=== PATIENT | female | born 1950 | race American Indian/Alaskan Native ===

== ENCOUNTER 2018-08-18 12:43 | Inpatient (IN) | payer MEDICARE, OTHER ==
--- NOTE | 2018-08-18 13:21 | History and Physical Report ---
History of Present Illness Date of examination: 08/18/18 Date of admission: Aug 18 2018 Chief complaint: Diziness Generalized weakness Shortness ofbreath withexertion Black stool History of present illness: 67 year old female presented in the office today , here with complaint of feeling dizzy and lightheaded ongoing for the past three days ,diziness is when standing upwards worse when up and about ,no chest pain but feels short of breath with physical activities . Patient has not been monitoring her blood pressure denied any associated vertigo no nausea or vomiting , no fever and no chills but no fever but feels sweaty. Patient also complaining of stiffness in the neck and moving and turning the neck makes dizziness more pronounced . Patient also complained that her stool has been black over the past week but denied any abdominal pain , no diarhea nausea orvomitingand has not noticed any bright red blood in her stool .Patient denied any previous history of ulcer or gastroesophageal reflux and has not observed any significant change in her w eight . Medications and Allergies Allergies Allergy/AdvReac Type Severity Reaction Status Date / Time No Known Allergies Allergy Unverified 02/19/14 09:45 Active Meds: Active Medications Sodium Chloride (Nacl 0.9% 1000 Ml) 1,000 mls @ 125 mls/hr IV DIRECT MARLA Pantoprazole Sodium (Protonix) 40 mg IV QDAY MARLA Review of Systems Constitutional: anorexia, fatigue, weakness Cardiovascular: palpitations, lightheadedness, shortness of breath, dyspnea on exertion, high blood pressure Respiratory: shortness of breath, dyspnea on exertion Neurological: headaches Exam - Constitutional General appearance: Present: no acute distress - EENT Eyes: Present: PERRL - Neck Neck: Present: supple, normal ROM - Respiratory Respiratory effort: normal Respiratory: bilateral: CTA - Cardiovascular Heart rate: 1,100 Rhythm: other (tachycardia) Heart Sounds: Present: S1 & S2 - Extremities Extremities: no ischemia, pulses intact, pulses symmetrical Peripheral Pulses: within normal limits - Abdominal General gastrointestinal: Present: soft, non-tender, non-distended, normal bowel sounds Female genitourinary: Present: deferred - Rectal Rectal Exam: normal exam-external/orifice, normal rectal tone, stool dark, other (strongly guaic positive stool ) - Integumentary Integumentary: Present: warm, dry, pale - Psychiatric Psychiatric: depressed - Neurologic Neurologic: CNII-XII intact, moves all extremities Assessment and Plan - Patient Problems (1) Gastrointestinal bleeding Status: Acute Plan to address problem: Acute ongoing GI bleedingwith upper GI bleeding . Will admit , keep on clear liquid tilll evaluated by GI then keep NPO IV NS IV Protonix (2) Iron deficiency anemia due to chronic blood loss Status: Acute Plan to address problem: GI bleeding secondary to Upper GI GI consult initiated . Check coagualtion status
[2018-08-18 14:38] LABS: Basophils # (Auto) 0.1 K/mm3 (0.0-0.1); Basophils % (Auto) 0.6 % (0.0-1.8); Eosinophils % (Auto) 0.3 % (0.0-4.3); Hematocrit 20.7 % (30.3-42.9); Hemoglobin 6.6 gm/dl (10.1-14.3); Lymphocytes # (Auto) 3.3 K/mm3 (1.2-5.4); Lymphocytes % (Auto) 33.2 % (13.4-35.0); Mean Corpuscular HGB Conc 32 % (30-34); Mean Corpuscular Volume 73 fl (79-97); Monocytes # (Auto) 0.5 K/mm3 (0.0-0.8); Monocytes % (Auto) 5.1 % (0.0-7.3); Platelet Count 243 K/mm3 (140-440); Red Blood Count 2.85 M/mm3 (3.65-5.03); Red Cell Distribution Width 14.5 % (13.2-15.2)
[2018-08-18 14:41] LABS: INR 0.95 (0.87-1.13)
[2018-08-18] MEDS: NACL 0.9% 1000 ML 1,000 ML IV SCH (14:52)
[2018-08-18] MEDS: PROTONIX IV SCH (14:52)
[2018-08-18 14:58] LABS: Alanine Aminotransferase 27 units/L (7-56); Albumin 3.5 g/dL (3.9-5); BUN/Creatinine Ratio 27; Blood Urea Nitrogen 24 mg/dL (7-17); Calcium 8.9 mg/dL (8.4-10.2); Hemolysis Index 0
[2018-08-18] MEDS ORDERED: NACL 0.9% 500 ML 500 ML IV NR (19:06)
[2018-08-19 08:26] LABS: Basophils % (Auto) 0.4 % (0.0-1.8); Eosinophils # (Auto) 0.1 K/mm3 (0.0-0.4); Hemoglobin 9.7 gm/dl (10.1-14.3); Lymphocytes # (Auto) 3.1 K/mm3 (1.2-5.4); Lymphocytes % (Auto) 35.5 % (13.4-35.0); Mean Corpuscular HGB Conc 33 % (30-34); Mean Corpuscular Volume 79 fl (79-97); Monocytes # (Auto) 0.6 K/mm3 (0.0-0.8); Monocytes % (Auto) 6.5 % (0.0-7.3); Platelet Count 233 K/mm3 (140-440); Red Cell Distribution Width 18.8 % (13.2-15.2)
[2018-08-19] MEDS: PROTONIX IV SCH (09:12)
--- NOTE | 2018-08-19 10:13 | Gastroenterology Consultation ---
History of Present Illness - Reason for Consult Consult date: 08/19/18 Melena, anemia Requesting physician: RHODA BANERJEE - History of Present Illness Ms Huffman is a 67 yo aaf who presents with recent episode of black stools. Pt went to urgent care for various symptoms including weakness/muscle aches and was found to have abnormal H/H and instructed to come to the hospital. She had an episode of black stools 2-3 days prior to admission, and another episode this m orning (2-3 total episodes in the past week). She takes aleve for muscle aches. Denies abdominal pain, hematemesis, or brbpr. reports having a colonoscopy last year without significant findings per her understanding. pt received blood transfusions following admission with appropriate rise in H/H; no known h/o liver disease. Past History Past Medical History: hypertension, stroke Past Surgical History: hysterectomy Social history: no significant social history Family history: no significant family history Medications and Allergies Allergies Allergy/AdvReac Type Severity Reaction Status Date / Time No Known Allergies Allergy Unverified 02/19/14 09:45 Home Medications Medication Instructions Recorded Confirmed Last Taken Type Amlodipine Besylate 10 mg PO DAILY 08/18/18 08/18/18 08/17/18 09:00 History Atorvastatin Calcium 80 mg PO DAILY 08/18/18 08/18/18 08/17/18 09:00 History Cyclobenzaprine HCl 5 mg PO DAILY 08/18/18 08/18/18 08/17/18 09:00 History Hydrochlorothiazide 25 mg PO DAILY 08/18/18 08/18/18 08/17/18 09:00 History Lisinopril 20 mg PO DAILY 08/18/18 08/18/18 08/17/18 09:00 History Tramadol HCl 50 mg PO Q6HR PRN 08/18/18 08/18/[address] 75 mg PO DAILY 08/18/18 08/18/18 08/17/18 09:00 History Active Meds: Active Medications Sodium Chloride (Nacl 0.9% 1000 Ml) 1,000 mls @ 125 mls/hr IV DIRECT MARLA Last Admin: 08/18/18 14:52 Dose: 125 mls/hr Documented by: Pantoprazole Sodium (Protonix) 40 mg IV QDAY MARLA Last Admin: 08/19/18 09:12 Dose: 40 mg Documented by: Reviewed/updated patient's home and current medications Review of Systems - Review of Systems All systems: negative (muscle aches, dizziness, rest per HPI) Exam - Constitutional Vital Signs: Temp Pulse Resp BP Pulse Ox 98.9 F 79 16 139/53 99 08/19/18 07:41 08/19/18 07:41 08/19/18 07:41 08/19/18 07:41 08/19/18 07:41 General appearance: no acute distress - EENT Eyes: PERRL ENT: hearing intact - Neck Neck: supple - Respiratory Respiratory effort: normal Respiratory: bilateral: CTA - Cardiovascular Rhythm: regular Heart Sounds: Present: S1 & S2 Extremities: No edema - Gastrointestinal General gastrointestinal: Present: soft, non-tender, non-distended - Neurologic Neurological: alert and oriented x3 - Labs CBC & Chem 7: 08/19/18 08:15 08/18/18 14:06 Lab Results: Laboratory Results - last 24 hr 08/18/18 08/18/18 08/18/18 14:06 14:06 14:06 WBC 10.1 RBC 2.85 L Hgb 6.6 L Hct 20.7 L MCV 73 L MCH 23 L MCHC 32 RDW 14.5 Plt Count 243 Lymph % (Auto) 33.2 Vernon % (Auto) 5.1 Eos % (Auto) 0.3 Baso % (Auto) 0.6 Lymph # 3.3 Vernon # 0.5 Eos # 0.0 Baso # 0.1 Seg Neutrophils % 60.8 Seg Neutrophils # 6.1 PT 13.3 INR 0.95 APTT 20.0 L Sodium 139 Potassium 3.5 L Chloride 102.2 Carbon Dioxide 25 Anion Gap 15 BUN 24 H Creatinine 0.9 Estimated GFR > 60 BUN/Creatinine Ratio 27 Glucose 95 Calcium 8.9 Total Bilirubin 0.20 AST 21 ALT 27 Alkaline Phosphatase 46 Total Protein 6.3 Albumin 3.5 L Albumin/Globulin Ratio 1.3 Blood Type Antibody Screen MARTHA Antibody Screen Crossmatch 08/18/18 08/19/18 14:06 08:15 WBC 8.9 RBC 3.70 Hgb 9.7 L D Hct 29.0 L D MCV 79 MCH 26 L MCHC 33 RDW 18.8 H Plt Count 233 Lymph % (Auto) 35.5 H Vernon % (Auto) 6.5 Eos % (Auto) 1.0 Baso % (Auto) 0.4 Lymph # 3.1 Vernon # 0.6 Eos # 0.1 Baso # 0.0 Seg Neutrophils % 56.6 Seg Neutrophils # 5.0 PT INR APTT Sodium Potassium Chloride Carbon Dioxide Anion Gap BUN Creatinine Estimated GFR BUN/Creatinine Ratio Glucose Calcium Total Bilirubin AST ALT Alkaline Phosphatase Total Protein Albumin Albumin/Globulin Ratio Blood Type A POSITIVE Antibody Screen Negative MARTHA Antibody Screen Negative Crossmatch See Detail Assessment and Plan 1. UGI bleed - vital signs stable; responded appropriately to blood transfusions. possible PUD in setting of nsaid use. pt had po intake this morning so will plan for EGD in tomorrow morning. will start on PPI drip in the mean time. okay for clears today and NPO at midnight. Trend H/H and transfuse as needed to keep hgb > 7 2. Anemia
[2018-08-19] MEDS ORDERED: DULCOLAX PO PRN (11:12)
--- NOTE | 2018-08-19 11:19 | Progress Note ---
Assessment and Plan - Patient Problems (1) Gastrointestinal bleeding Current Visit: No Status: Acute Plan to address problem: Patient stable post transfusion of 2 units of prbc and no further melanotic stool reported .Patients vitals stable . Will keep NPO after midnight today , continue clear liquid for now .Contnur on PPI .Patient already evaluated by GI and EGD planned for AM (2) Iron deficiency anemia due to chronic blood loss Current Visit: No Status: Acute Plan to address problem: Post transfusion of 2 Units PRBC . Recheck Hgb in AM Subjective Date of service: 08/19/18 Interval history: Patient seen and examined , chart and consultants notes reviewed ,patient feels stronger after transfusion of the 2 Units of PRBC last night ,patient has not had any further episode of melanotic stool and no nausea , no vomiting and denied abdominal pain ,no fevr reported by nursing staff . Dizziness has resolved gradually . Objective - Constitutional Vitals: Vital Signs - 12hr 08/18/18 08/19/18 08/19/18 23:45 00:15 00:45 Temperature 98.7 F 98.8 F 98.7 F Pulse Rate 85 82 83 Pulse Rate [ Right Brachial] Respiratory 20 20 20 Rate Blood Pressure 126/44 130/48 125/49 O2 Sat by Pulse 100 100 100 Oximetry 08/19/18 08/19/18 08/19/18 01:09 01:19 01:30 Temperature 98.9 F 98.9 F Pulse Rate 84 84 79 Pulse Rate [ Right Brachial] Respiratory 24 24 22 Rate Blood Pressure 133/50 133/50 122/46 O2 Sat by Pulse 100 100 100 Oximetry 08/19/18 08/19/18 08/19/18 01:31 01:34 01:43 Temperature 98.8 F 98.8 F Pulse Rate 86 Pulse Rate [ 86 Right Brachial] Respiratory 22 20 Rate Blood Pressure 146/47 O2 Sat by Pulse 100 100 Oximetry 08/19/18 08/19/18 08/19/18 02:04 02:34 03:04 Temperature 98.7 F 98.6 F 98 F Pulse Rate 88 89 84 Pulse Rate [ Right Brachial] Respiratory 20 20 20 Rate Blood Pressure 136/44 135/54 123/42 O2 Sat by Pulse 99 100 99 Oximetry 08/19/18 08/19/18 08/19/18 03:33 03:34 04:58 Temperature 98.0 F 98.7 F 97.6 F Pulse Rate 84 81 82 Pulse Rate [ Right Brachial] Respiratory 20 20 20 Rate Blood Pressure 123/42 132/53 120/43 O2 Sat by Pulse 100 99 100 Oximetry 08/19/18 07:41 Temperature 98.9 F Pulse Rate 79 Pulse Rate [ Right Brachial] Respiratory 16 Rate Blood Pressure 139/53 O2 Sat by Pulse 99 Oximetry General appearance: Present: no acute distress, obese - EENT Eyes: PERRL ENT: hearing intact, clear oral mucosa Ears: bilateral: normal - Neck Neck: supple, normal ROM - Respiratory Respiratory effort: normal Respiratory: bilateral: CTA - Cardiovascular Rhythm: regular Heart Sounds: Present: S1 & S2 Extremities: no ischemia, pulses intact, pulses symmetrical, normal temperature - Gastrointestinal General gastrointestinal: Present: soft, non-tender, non-distended, normal bowel sounds Rectal Exam: deferred - Integumentary Integumentary: warm, dry - Musculoskeletal Musculoskeletal: strength equal bilaterally - Neurologic Neurologic: CNII-XII intact, moves all extremities - Psychiatric Psychiatric: appropriate mood/affect - Labs CBC & Chem 7: 08/19/18 08:15 08/18/18 14:06 Labs: Abnormal lab results 08/18/18 08/18/18 08/18/18 Range/Units 14:06 14:06 14:06 RBC 2.85 L (3.65-5.03) M/mm3 Hgb 6.6 L (10.1-14.3) gm/dl Hct 20.7 L (30.3-42.9) % MCV 73 L (79-97) fl MCH 23 L (28-32) pg RDW (13.2-15.2) % Lymph % (Auto) (13.4-35.0) % APTT 20.0 L (24.2-36.6) Sec. Potassium 3.5 L (3.6-5.0) mmol/L BUN 24 H (7-17) mg/dL Albumin 3.5 L (3.9-5) g/dL Crossmatch 08/18/18 08/19/18 Range/Units 14:06 08:15 RBC (3.65-5.03) M/mm3 Hgb 9.7 L D (10.1-14.3) gm/dl Hct 29.0 L D (30.3-42.9) % MCV (79-97) fl MCH 26 L (28-32) pg RDW 18.8 H (13.2-15.2) % Lymph % (Auto) 35.5 H (13.4-35.0) % APTT (24.2-36.6) Sec. Potassium (3.6-5.0) mmol/L BUN (7-17) mg/dL Albumin (3.9-5) g/dL Crossmatch See Detail
[2018-08-19] MEDS: TYLENOL PO PRN ×2 (11:30→22:43)
[2018-08-19] MEDS: PROTONIX 80 MG in NACL 0.9% 100 ML IV SCH ×2 (16:27→23:38)
[2018-08-19] MEDS: NACL 0.9% 1000 ML 1,000 ML IV SCH (23:40)
[2018-08-20] MEDS: NACL 0.9% 1000 ML 1,000 ML IV SCH (06:40)
--- NOTE | 2018-08-20 09:13 | Anesthesia Day of Surgery ---
Anesthesia Day of Surgery - Day of Surgery Patient Examined: Yes Patient H&P Reviewed: Yes Patient is NPO: Yes Beta Blockers: No Cardiac Clearance: No Pulmonary Clearance: No Luciano's Test: N/A
--- NOTE | 2018-08-20 09:16 | Anesthesia Consultation ---
Anesthesia Consult and Med Hx Date of service: 08/20/18 - Airway Anesthetic Teeth Evaluation: Poor, Chipped ROM Head & Neck: Adequate Mental/Hyoid Distance: Adequate Mallampati Class: Class III Intubation Access Assessment: Good - Pulmonary Exam CTA: Yes - Cardiac Exam Cardiac Exam: RRR - Pre-Operative Health Status ASA Pre-Surgery Classification: ASA3 Proposed Anesthetic Plan: General - Pre-Anesthesia Comment Pre-Anesthesia Comments: reviewed the patient's history and will proceed with the EGD. patient was on protonix. please correct weight in the chart - team notified. - Pulmonary Hx Smoking: No Hx Asthma: Yes - Cardiovascular System Hx Hypertension: Yes - Central Nervous System Hx Psychiatric Problems: No - Other Systems Hx Cancer: No - Additional Comments Anesthesia Medical History Comments: prior anesthesia history - s/p hysterectomy, colonscopy
[2018-08-20] MEDS ORDERED: DIPRIVAN 10 MG/ML IV ONE (09:19)
--- NOTE | 2018-08-20 09:35 | Operative Report ---
Operative Report Operative Report: Esophagogastroduodenoscopy Procedure Note Date of procedure: 08/20/2018 Endoscopist: Marcial Reynoso Pre-op diagnosis/indication: Upper GI bleed, anemia, melena Post-op diagnosis: Erosive gastritis MEDICATIONS: MAC COMPLICATIONS: No immediate complications ESTIMATED BLOOD LOSS:None DESCRIPTION OF PROCEDURE: After consent was obtained, the patient was placed in the left lateral decubitis position. The fujinon endoscope was inserted into the patient's mouth under direct vision and advanced to the 2nd portion of the duodenum without difficulty. The patient tolerated the procedure well. The views of the mucosa were good. The patient's vital signs were monitored continuously throughout the procedure. FINDINGS: The esophagus appeared normal. There were a couple small superficial erosions and erythematous mucosa in the distal gastric body and antrum of the stomach. No high risk bleeding lesions were seen. Otherwise, the stomach appeared normal. The duodenum appeared normal. IMPRESSION: 1. Erosive gastritis. No high risk bleeding lesions RECOMMENDATIONS: -PPI po daily x 2-3 months -d/c nsaid's (okay to continue aspirin) -restart diet -pt can be discharged from gi stand point. Follow-up in GI clinic in 3-4 weeks Will sign off, please call as needed or with questions.
--- NOTE | 2018-08-20 10:42 | Discharge Summary ---
Providers - Providers Date of Admission: 08/18/18 13:22 Date of discharge: 08/20/18 Attending physician: RHODA BANERJEE 08/18/18 13:08 Consult to Physician [CONS] Urgent Comment: called answTerrance chan Consulting Provider: WILI PETTY Physician Instructions: Reason For Exam: Gastrointestinal bleed Primary care physician: JUSTUS RODRIGUEZ Hospitalization Reason for admission: upper GI bleeding Pertinent studies: Esophageal gastroduodenoscopy which showed superficial ulcers in the duodenum Procedures: EGD showing erosive gastritis Hospital course: 67-year-old female patient admitted from our office on account of progressive weakness dizziness or shortness of breath with physical activity. Patient was admitted following the shoulder bothers her in the office which showed the patient was moderately pill tachycardia and low blood pressure. Physical examination is also confirmed strongly guaiac-positive melanotic stool. Upon admission initial hemoglobin was found to be 6.0 temperature was admitted after the emergency room started on Clear Liquid Diet and subsequently transfused her 2 units of packed red blood cells post transitional PCV was 9.7. GI consultation was obtained and the patient was developed by Dr. Reynoso are scheduled for EGD which was performed this morning. Patient was also started on IV Protonix 40 mg daily which was subsequently increased to 40 mg twice daily EGD performed over the restaurant does not bleeding secondary to erosive gastritis with was no active bleeding identified and no bleeding vessels was identified. Impression overall condition is continued to improve patient denied any further shortness of breath blood pressure stable vital stable overall Patient is currently stable post EGD and denied any new complaints enough to be discharged home today we'll continue present oral Protonix for the next 3 months to follow up with GI in the next 4 weeks until follow-up with Dr Tao In 2 weeks Disposition: [id number] TO HOME OR SELFCARE - Discharge Diagnoses (1) Gastrointestinal bleeding Status: Resolved Qualifiers: GI bleed type/associated pathology: gastritis Comment: EGD noted shows erosive gastritis but no active bleeding identified no bleeding vessels (2) Iron deficiency anemia due to chronic blood loss Status: Acute Comment: Post admission hemoglobin was noted to be 9.7 we'll discharge patient home on iron and vitamin C as well as Protonix to follow-up as outpatient and hemoglobin would be reassessed at that time (3) Essential (primary) hypertension Status: Acute Comment: Blood pressure noticed to be stable for the period of hospitalization will restart blood pressure medication upon discharge home Core Measure Documentation - Palliative Care Palliative Care/ Comfort Measures: Not Applicable - Core Measures Any of the following diagnoses?: none Exam - Constitutional Vitals: Temp Pulse Resp BP Pulse Ox 98.1 F 80 25 H 141/67 100 08/20/18 09:30 08/20/18 09:55 08/20/18 09:55 08/20/18 09:55 08/20/18 09:55 General appearance: Present: no acute distress - EENT Eyes: Present: PERRL ENT: hearing intact - Neck Neck: Present: supple, normal ROM - Respiratory Respiratory effort: normal Respiratory: bilateral: CTA - Cardiovascular Rhythm: regular Heart Sounds: Present: S1 & S2 - Extremities Extremities: no ischemia, pulses intact, pulses symmetrical Peripheral Pulses: within normal limits - Abdominal General gastrointestinal: Present: soft, non-tender, non-distended, normal bowel sounds - Rectal Rectal Exam: deferred - Integumentary Integumentary: Present: warm, dry - Musculoskeletal Musculoskeletal: strength equal bilaterally - Psychiatric Psychiatric: appropriate mood/affect - Neurologic Neurologic: CNII-XII intact, moves all extremities Plan Activity: no restrictions Weight Bearing Status: Full Weight Bearing (mechanical soft diet and then advance as tolerated) Follow up with: RHODA BANERJEE MD [Staff Physician] - 7 Days Prescriptions: Ferrous Sulfate [Feosol] 325 mg PO QDAY #30 tablet Pantoprazole [Protonix] 40 mg PO QDAY #90 tablet Tramadol HCl 50 mg PO Q12HR PRN 30 Days #60 PRN Reason: Pain , Severe (7-10) Ascorbic Acid [Vitamin C] 250 mg PO BID #60 tablet
[2018-08-20] MEDS ORDERED: APRESOLINE IV ONE (14:09)
[2018-08-20 14:25] VITALS: BP 164/62
== END 2018-08-20 14:30 | disposition home or self-care (01) | DRG 379 ==
LOC: 2B-ACE 13:22
PROVIDERS: ADMIT Internal Medicine; ATTEND Internal Medicine
PROC: 30233N1 Transfusion of Nonautologous Red Blood Cells into Peripheral Vein, Percutaneous Approach (ICD-10-PCS; principal; 2018-08-18)
PROC: 0DJ08ZZ Inspection of Upper Intestinal Tract, Via Natural or Artificial Opening Endoscopic (ICD-10-PCS; 2018-08-20)
DX: K29.01 Acute gastritis with bleeding (principal); I10 Essential (primary) hypertension; D50.0 Iron deficiency anemia secondary to blood loss (chronic); J45.909 Unspecified asthma, uncomplicated; Z90.710 Acquired absence of both cervix and uterus; Z82.3 Family history of stroke; Z79.899 Other long term (current) drug therapy
CPT/HCPCS: 36415; 80053; 82962; 85025; 85610; 85730; 86850; 86900; 86901; 86920; G0378; A9270-GY; C9113; J2704; J7030; J7040; P9016